=== PATIENT | male | born 1935 | race Caucasian/White ===

== ENCOUNTER 2021-06-12 08:28 | Emergency (ER) | payer OTHER ==
[2021-06-12] MEDS ORDERED: ASPIRIN 325 MG TABLET PO ONE (08:41)
[2021-06-12] MEDS ORDERED: ASPIRIN 81 MG CHEWABLE TABLETS PO ONE (08:44)
[2021-06-12] MEDS ORDERED: NITROGLYCERIN SUBLINGUAL 1/150 0.4 MG TAB SL ONE (09:06)
[2021-06-12 09:13] LABS: BASO % 1.1 % (0-2.0); EOS % 1.4 % (0-4.5); HEMATOCRIT 40.7 % (35.4-49); HEMOGLOBIN 13.6 GM/dL (11.7-16.9); LYMPH % 8.9 % (8-40); MCH 32.1 pg (25.7-33.7); MCHC 33.3 g/dl (32.0-35.9); MEAN CELL VOLUME 96.3 fl (80-96); MONO % 8.9 % (3.8-10.2); NEUT % 79.7 % (42.8-82.8); PLATELET COUNT 151 10^3/uL (134-434); RBC 4.23 M/mm3 (4.00-5.60); RDW 13.2 % (11.9-15.9); WHITE BLOOD COUNT 10.1 K/mm3 (4.0-10.0)
[2021-06-12 09:16] VITALS: BMI 20.2
[2021-06-12 09:22] LABS: INR 1.05 (0.83-1.09); PROTHROMBIN TIME (PATIENT) 12.3 SEC (9.7-13.0)
[2021-06-12 09:25] LABS: ACTIVATED PTT 27.8 SECONDS (25.2-36.5); CHLORIDE 111 mmol/L (98-107); SODIUM 141 mmol/L (136-145)
[2021-06-12 09:27] LABS: CALCIUM 9.3 mg/dL (8.5-10.1)
[2021-06-12 09:28] LABS: ANION GAP 9 MMOL/L (8-16); BLOOD UREA NITROGEN 33.2 mg/dL (7-18); CO2 21 mmol/L (21-32); GLUCOSE,RANDOM 174 mg/dL (74-106)
[2021-06-12 09:31] LABS: SGOT/AST 21 U/L (15-37); SGPT/ALT 16 U/L (13-61)
[2021-06-12 09:33] LABS: ALK PHOS 141 U/L (45-117)
[2021-06-12] MEDS ORDERED: ATORVASTATIN CA 40 MG TABLET (FP) PO ONE (09:42)
[2021-06-12] MEDS ORDERED: HEPARIN NA (PORCINE) 5,000 UNITS/ML 1ML VIAL IVPUSH PRN ×2 (09:49)
[2021-06-12] MEDS ORDERED: HEPARIN NA (PORCINE) 5,000 UNITS/ML 1ML VIAL IVPUSH ONE (09:49)
[2021-06-12] MEDS ORDERED: HEPARIN - 25,000 UNIT in SODIUM CHLORIDE 495 ML IV SCH (10:00)
[2021-06-12] MEDS ORDERED: ATORVASTATIN CA 40 MG TABLET (FP) ONE (10:08)
[2021-06-12] MEDS ORDERED: HEPARIN INFUSION - 25,000 UNITS/500 ML INFUS.BAG IVPB ONE (10:08)
[2021-06-12 10:18] LABS: N-TERMINAL BNP 10730.9 pg/ml (5-450)
[2021-06-12] MEDS ORDERED: METOPROLOL TARTRATE 25 MG TABLET (FP) PO ONE (10:30)
[2021-06-12 13:06] VITALS: BP 181/68; PULSE 100; TEMP 99.2
== END 2021-06-12 13:09 | disposition short-term general hospital (02) ==
LOC: JER 08:28
PROC: 3E033GC Introduction of Other Therapeutic Substance into Peripheral Vein, Percutaneous Approach (ICD-10-PCS; principal; 2021-06-12)
DX: I20.0 Unstable angina (principal)
CPT/HCPCS: 36415; 71045-TC-FY; 80053; 80061; 82550; 83690; 83735; 83880; 84484; 85025; 85610; 85730; 93005; 93010; 99285-25; C9803; J1644; U0003; U0005

== ENCOUNTER 2021-09-19 09:32 | Inpatient (IN) | payer OTHER ==
[2021-09-19] MEDS ORDERED: NITROGLYCERIN 50MG/D5W 250ML 50 MG/250 ML ML IVPB SCH (10:15)
[2021-09-19] MEDS ORDERED: FUROSEMIDE 40 MG/4 ML INJECTABLE VIAL IVPUSH ONE (10:59)
[2021-09-19] MEDS: NITROGLYCERIN 25MG/D5W 250ML 25 MG/250 ML ML IVPB SCH (11:07)
[2021-09-19] MEDS ORDERED: FUROSEMIDE 40 MG/4 ML INJECTABLE VIAL ONE (11:10)
[2021-09-19 11:36] LABS: BASO % 0.9 % (0-2.0); EOS % 5.9 % (0-4.5); HEMATOCRIT 30.8 % (35.4-49); HEMOGLOBIN 10.6 GM/dL (11.7-16.9); LYMPH % 6.8 % (8-40); MCH 32.1 pg (25.7-33.7); MCHC 34.3 g/dl (32.0-35.9); MEAN CELL VOLUME 93.6 fl (80-96); MEAN PLT VOLUME 8.7 fl (7.5-11.1); MONO % 7.7 % (3.8-10.2); NEUT % 78.7 % (42.8-82.8); PLATELET COUNT 304 10^3/uL (134-434); RBC 3.29 M/mm3 (4.00-5.60); RDW 15.3 % (11.9-15.9)
[2021-09-19 11:44] LABS: CHLORIDE 109 mmol/L (98-107); SODIUM 142 mmol/L (136-145)
[2021-09-19 11:46] LABS: CALCIUM 9.8 mg/dL (8.5-10.1)
[2021-09-19 11:47] LABS: ALBUMIN 3.3 g/dl (3.4-5.0); ANION GAP 9 MMOL/L (8-16); BLOOD UREA NITROGEN 64.6 mg/dL (7-18); CO2 24 mmol/L (21-32); GLUCOSE,RANDOM 205 mg/dL (74-106)
[2021-09-19 11:50] LABS: CREATININE 2.4 mg/dL (0.55-1.3); SGOT/AST 20 U/L (15-37); SGPT/ALT 18 U/L (13-61)
[2021-09-19 11:51] LABS: BILIRUBIN,TOTAL 0.7 mg/dL (0.2-1); TOT PROT 8.4 g/dl (6.4-8.2)
[2021-09-19 11:52] LABS: ALK PHOS 165 U/L (45-117)
[2021-09-19 13:20] LABS: N-TERMINAL BNP 21855.6 pg/ml (5-450)
[2021-09-19] MEDS ORDERED: ATORVASTATIN CA 80 MG TABLET (FP) PO ONE (13:59)
[2021-09-19] MEDS ORDERED: MELATONIN 5 MG TABLETS PO ONE (14:01)
[2021-09-19] MEDS ORDERED: FLUTICASONE PROP 0.05% 16 GM NASAL SPRAY NS ONE (14:04)
[2021-09-19] MEDS ORDERED: MECLIZINE HCL 12.5 MG TABLET PO PRN (14:05)
[2021-09-19] MEDS ORDERED: MELATONIN 5 MG TABLETS ONE (15:18)
[2021-09-19] MEDS ORDERED: ATORVASTATIN CA 80 MG TABLET (FP) ONE (15:18)
[2021-09-19] MEDS: amLODIPine BESYLATE 5 MG TABLET (FP) PO SCH (15:27)
[2021-09-19] MEDS: ALBUTEROL SO4 0.083% IH SOL 2.5 MG/3 ML VIAL.NEB. NEB SCH (15:27)
[2021-09-19] MEDS ORDERED: amLODIPine BESYLATE 5 MG TABLET (FP) ONE (15:29)
[2021-09-19] MEDS ORDERED: HEPARIN NA (PORCINE) 5,000 UNITS/ML 1ML VIAL ONE (15:29)
[2021-09-19] MEDS: HEPARIN NA (PORCINE) 5,000 UNITS/ML 1ML VIAL SQ SCH (17:21)
[2021-09-19] MEDS ORDERED: FUROSEMIDE 40 MG/4 ML INJECTABLE VIAL IVPUSH SCH (22:00)
[2021-09-20] MEDS: TICAGRELOR 60 MG TABLET PO SCH ×3 (02:37→22:30)
[2021-09-20] MEDS: HEPARIN NA (PORCINE) 5,000 UNITS/ML 1ML VIAL SQ SCH ×4 (02:38→22:30)
[2021-09-20] MEDS: MELATONIN 5 MG TABLETS PO PRN (02:38)
[2021-09-20] MEDS ORDERED: MELATONIN 5 MG TABLETS ONE (02:41)
[2021-09-20] MEDS ORDERED: FUROSEMIDE 40 MG/4 ML INJECTABLE VIAL ONE ×3 (02:41→13:23)
[2021-09-20] MEDS ORDERED: HEPARIN NA (PORCINE) 5,000 UNITS/ML 1ML VIAL ONE ×3 (07:38→22:03)
[2021-09-20] MEDS: FUROSEMIDE 40 MG/4 ML INJECTABLE VIAL IVPUSH SCH ×2 (08:00→14:36)
[2021-09-20] MEDS: ALBUTEROL SO4 0.083% IH SOL 2.5 MG/3 ML VIAL.NEB. NEB SCH ×2 (09:00→14:41)
[2021-09-20] MEDS ORDERED: amLODIPine BESYLATE 5 MG TABLET (FP) ONE (09:53)
[2021-09-20] MEDS ORDERED: ASPIRIN COATED 81 MG TABLET.EC ONE (09:53)
[2021-09-20] MEDS: CHOLECALCIFEROL (VIT D3) 5000 UNITS (125 MCG) CAP PO SCH (10:06)
[2021-09-20] MEDS: ASPIRIN COATED 81 MG TABLET.EC PO SCH (10:06)
[2021-09-20] MEDS: amLODIPine BESYLATE 5 MG TABLET (FP) PO SCH (10:06)
[2021-09-20] MEDS: CYANOCOBALAMIN 1,000 MCG TABLET (FP) PO SCH (10:06)
[2021-09-20] MEDS: NITROGLYCERIN 25MG/D5W 250ML 25 MG/250 ML ML IVPB SCH (11:13)
[2021-09-20] MEDS ORDERED: metoPROLOL SUCCINATE 25 MG TAB.SR.24H (FP) ONE (13:23)
[2021-09-20] MEDS ORDERED: NITROGLYCERIN SUBLINGUAL 1/200 0.3 MG BTL SL PRN (13:30)
[2021-09-20] MEDS: metoPROLOL SUCCINATE 25 MG TAB.SR.24H (FP) PO SCH (14:05)
[2021-09-20 15:22] LABS: BASO % 1.3 % (0-2.0); EOS % 2.5 % (0-4.5); HEMATOCRIT 32.1 % (35.4-49); HEMOGLOBIN 10.7 GM/dL (11.7-16.9); LYMPH % 6.3 % (8-40); MCH 31.5 pg (25.7-33.7); MCHC 33.5 g/dl (32.0-35.9); MEAN CELL VOLUME 94.2 fl (80-96); MEAN PLT VOLUME 8.8 fl (7.5-11.1); MONO % 9.8 % (3.8-10.2); NEUT % 80.1 % (42.8-82.8); PLATELET COUNT 280 10^3/uL (134-434); RBC 3.41 M/mm3 (4.00-5.60); RDW 15.2 % (11.9-15.9); WHITE BLOOD COUNT 10.9 K/mm3 (4.0-10.0)
[2021-09-20 15:42] LABS: CALCIUM 9.3 mg/dL (8.5-10.1)
[2021-09-20 15:43] LABS: ALBUMIN 2.9 g/dl (3.4-5.0); BLOOD UREA NITROGEN 57.6 mg/dL (7-18)
[2021-09-20] MEDS ORDERED: NITROGLYCERIN SUBLINGUAL 1/150 0.4 MG TAB SL PRN ×2 (15:45→15:50)
[2021-09-20 15:46] LABS: CREATININE 2.4 mg/dL (0.55-1.3)
[2021-09-20 15:47] LABS: BILIRUBIN,TOTAL 0.8 mg/dL (0.2-1); TOT PROT 7.9 g/dl (6.4-8.2)
[2021-09-21] MEDS: HEPARIN NA (PORCINE) 5,000 UNITS/ML 1ML VIAL SQ SCH ×3 (06:40→21:02)
[2021-09-21] MEDS: FUROSEMIDE 40 MG/4 ML INJECTABLE VIAL IVPUSH SCH ×2 (06:42→13:54)
[2021-09-21] MEDS: metoPROLOL SUCCINATE 25 MG TAB.SR.24H (FP) PO SCH (09:05)
[2021-09-21] MEDS: CYANOCOBALAMIN 1,000 MCG TABLET (FP) PO SCH (09:05)
[2021-09-21] MEDS: ASPIRIN COATED 81 MG TABLET.EC PO SCH (09:05)
[2021-09-21] MEDS: amLODIPine BESYLATE 5 MG TABLET (FP) PO SCH (09:05)
[2021-09-21] MEDS: CHOLECALCIFEROL (VIT D3) 5000 UNITS (125 MCG) CAP PO SCH (09:06)
[2021-09-21] MEDS: TICAGRELOR 60 MG TABLET PO SCH ×2 (09:06→21:02)
[2021-09-21] MEDS: INSULIN SLIDING SCALE (NOVOLOG) 1 VIAL SQ SCH ×3 (11:06→19:23)
[2021-09-21 11:32] VITALS: BMI 14.6
[2021-09-21 13:09] LABS: CALCIUM 8.9 mg/dL (8.5-10.1)
[2021-09-21 13:10] LABS: BLOOD UREA NITROGEN 56.5 mg/dL (7-18)
[2021-09-21 13:11] LABS: PHOSPHOROUS 4.2 mg/dL (2.5-4.9)
[2021-09-21 13:13] LABS: CREATININE 2.6 mg/dL (0.55-1.3)
[2021-09-21] MEDS ORDERED: PIPERACILLIN/TAZOB 2.25 GM 2.25 GM in DEXTROSE 5%-WATER - 50 ML IVPB SCH (13:30)
[2021-09-21] MEDS ORDERED: PIPERACILLIN/TAZOBACTAM 2.25 GM VIAL IVPB ONE ×2 (13:50→18:04)
[2021-09-21] MEDS ORDERED: DEXTROSE 5%-WATER - 50 ML IVPB ONE ×2 (13:50→18:04)
[2021-09-21 14:22] LABS: EPI CELLS 14 /uL (0-25.1); HYALINE CASTS 3 /uL (0-3.1); URINE APPEARANCE TURBID; URINE BACTERIA 2797 /uL (0-1359); URINE BILIRUBIN NEGATIVE (NEGATIVE); URINE COLOR YELLOW; URINE GLUCOSE (UA) NEGATIVE (NEGATIVE); URINE KETONE NEGATIVE (NEGATIVE); URINE LEUK ESTERASE 3+ (NEGATIVE); URINE NITRITE NEGATIVE (NEGATIVE); URINE PROTEIN 2+ (NEGATIVE); URINE UROBILINOGEN 0.2 mg/dL (0.2-1.0); URINE WBC 24536 /uL (0-25.8)
[2021-09-21 14:31] LABS: URINE RBC 504.1 /uL (0-23.9); YEAST NO SEEN (NEGATIVE)
[2021-09-21] MEDS: PIPERACILLIN/TAZOB 2.25 GM 2.25 GM in DEXTROSE 5%-WATER - 50 ML IVPB SCH (18:10)
[2021-09-21] MEDS: ALBUTEROL SO4 0.083% IH SOL 2.5 MG/3 ML VIAL.NEB. NEB SCH ×2 (19:24→19:25)
[2021-09-21] MEDS: MELATONIN 5 MG TABLETS PO PRN (21:02)
[2021-09-22] MEDS ORDERED: DEXTROSE 5%-WATER - 50 ML IVPB ONE ×3 (00:54→17:21)
[2021-09-22] MEDS ORDERED: PIPERACILLIN/TAZOBACTAM 2.25 GM VIAL IVPB ONE ×3 (00:54→17:21)
[2021-09-22] MEDS: PIPERACILLIN/TAZOB 2.25 GM 2.25 GM in DEXTROSE 5%-WATER - 50 ML IVPB SCH ×3 (01:10→18:26)
[2021-09-22] MEDS: HEPARIN NA (PORCINE) 5,000 UNITS/ML 1ML VIAL SQ SCH ×3 (07:01→21:45)
[2021-09-22] MEDS: INSULIN SLIDING SCALE (NOVOLOG) 1 VIAL SQ SCH ×3 (07:02→17:12)
[2021-09-22] MEDS: FUROSEMIDE 40 MG/4 ML INJECTABLE VIAL IVPUSH SCH ×2 (07:02→14:41)
[2021-09-22 08:02] LABS: HEMATOCRIT 24.8 % (35.4-49); HEMOGLOBIN 8.4 GM/dL (11.7-16.9); MCH 31.6 pg (25.7-33.7); MCHC 34.1 g/dl (32.0-35.9); MEAN CELL VOLUME 92.9 fl (80-96); PLATELET COUNT 197 10^3/uL (134-434); RBC 2.66 M/mm3 (4.00-5.60); RDW 14.9 % (11.9-15.9); WHITE BLOOD COUNT 10.3 K/mm3 (4.0-10.0)
[2021-09-22 08:19] LABS: CALCIUM 8.5 mg/dL (8.5-10.1)
[2021-09-22 08:20] LABS: BLOOD UREA NITROGEN 66.8 mg/dL (7-18); MAGNESIUM 1.8 mg/dL (1.8-2.4)
[2021-09-22 08:23] LABS: CREATININE 2.8 mg/dL (0.55-1.3); PHOSPHOROUS 4.1 mg/dL (2.5-4.9)
[2021-09-22] MEDS: CHOLECALCIFEROL (VIT D3) 5000 UNITS (125 MCG) CAP PO SCH (11:28)
[2021-09-22] MEDS: ASPIRIN COATED 81 MG TABLET.EC PO SCH (11:28)
[2021-09-22] MEDS: metoPROLOL SUCCINATE 25 MG TAB.SR.24H (FP) PO SCH (11:28)
[2021-09-22] MEDS: CYANOCOBALAMIN 1,000 MCG TABLET (FP) PO SCH (11:28)
[2021-09-22] MEDS: TICAGRELOR 60 MG TABLET PO SCH ×2 (11:28→21:45)
[2021-09-22] MEDS: amLODIPine BESYLATE 5 MG TABLET (FP) PO SCH (11:28)
[2021-09-22] MEDS: MELATONIN 5 MG TABLETS PO PRN (21:45)
[2021-09-23] MEDS ORDERED: PIPERACILLIN/TAZOBACTAM 2.25 GM VIAL IVPB ONE ×2 (00:33→09:45)
[2021-09-23] MEDS ORDERED: DEXTROSE 5%-WATER - 50 ML IVPB ONE ×2 (00:33→09:45)
[2021-09-23] MEDS: PIPERACILLIN/TAZOB 2.25 GM 2.25 GM in DEXTROSE 5%-WATER - 50 ML IVPB SCH ×2 (01:00→10:03)
[2021-09-23] MEDS: FUROSEMIDE 40 MG/4 ML INJECTABLE VIAL IVPUSH SCH (06:39)
[2021-09-23] MEDS: HEPARIN NA (PORCINE) 5,000 UNITS/ML 1ML VIAL SQ SCH ×3 (06:39→21:28)
[2021-09-23] MEDS: INSULIN SLIDING SCALE (NOVOLOG) 1 VIAL SQ SCH ×3 (06:40→17:37)
[2021-09-23 08:30] LABS: BASO % 0.5 % (0-2.0); EOS % 5.3 % (0-4.5); HEMATOCRIT 24.7 % (35.4-49); HEMOGLOBIN 8.2 GM/dL (11.7-16.9); LYMPH % 8.5 % (8-40); MCHC 33.2 g/dl (32.0-35.9); MEAN CELL VOLUME 93.3 fl (80-96); MEAN PLT VOLUME 9.3 fl (7.5-11.1); MONO % 9.8 % (3.8-10.2); NEUT % 75.9 % (42.8-82.8); PLATELET COUNT 202 10^3/uL (134-434); RBC 2.65 M/mm3 (4.00-5.60); RDW 14.8 % (11.9-15.9)
[2021-09-23 08:55] LABS: ALBUMIN 2.4 g/dl (3.4-5.0); BLOOD UREA NITROGEN 71.7 mg/dL (7-18); CALCIUM 8.8 mg/dL (8.5-10.1)
[2021-09-23 08:58] LABS: CREATININE 2.9 mg/dL (0.55-1.3)
[2021-09-23 09:00] LABS: BILIRUBIN,TOTAL 0.6 mg/dL (0.2-1); TOT PROT 6.6 g/dl (6.4-8.2)
[2021-09-23] MEDS: CYANOCOBALAMIN 1,000 MCG TABLET (FP) PO SCH (10:02)
[2021-09-23] MEDS: metoPROLOL SUCCINATE 25 MG TAB.SR.24H (FP) PO SCH (10:02)
[2021-09-23] MEDS: TICAGRELOR 60 MG TABLET PO SCH ×2 (10:02→21:28)
[2021-09-23] MEDS: amLODIPine BESYLATE 10 MG TABLET (FP) PO SCH (10:02)
[2021-09-23] MEDS: ASPIRIN COATED 81 MG TABLET.EC PO SCH (10:02)
[2021-09-23] MEDS: CHOLECALCIFEROL (VIT D3) 5000 UNITS (125 MCG) CAP PO SCH (10:03)
[2021-09-23 14:25] LABS: EPI CELLS 3 /uL (0-25.1); HYALINE CASTS 1 /uL (0-3.1); PH,URINE 5.5 (5.0-8.0); URINE APPEARANCE CLOUDY; URINE BACTERIA 7 /uL (0-1359); URINE BILIRUBIN NEGATIVE (NEGATIVE); URINE COLOR YELLOW; URINE GLUCOSE (UA) NEGATIVE (NEGATIVE); URINE KETONE NEGATIVE (NEGATIVE); URINE LEUK ESTERASE 3+ (NEGATIVE); URINE NITRITE NEGATIVE (NEGATIVE); URINE PROTEIN TRACE (NEGATIVE); URINE RBC 538 /uL (0-23.9); URINE UROBILINOGEN 0.2 mg/dL (0.2-1.0); URINE WBC 1177 /uL (0-25.8)
[2021-09-23] MEDS: ALBUTEROL SO4 HFA INHALER IH PRN ×2 (15:49→21:23)
[2021-09-23] MEDS: MELATONIN 5 MG TABLETS PO PRN (21:28)
[2021-09-23] MEDS: AMOXICILLIN 500 MG CAPSULE (FP) PO SCH (21:28)
[2021-09-24] MEDS ORDERED: ACETAMINOPHEN 500 MG TABLET (FP) PO ONE (02:30)
[2021-09-24] MEDS: HEPARIN NA (PORCINE) 5,000 UNITS/ML 1ML VIAL SQ SCH (05:57)
[2021-09-24] MEDS: INSULIN SLIDING SCALE (NOVOLOG) 1 VIAL SQ SCH ×2 (06:00→12:47)
[2021-09-24 06:03] VITALS: PULSE 70
[2021-09-24 08:50] LABS: BASO % 0.5 % (0-2.0); EOS % 7.2 % (0-4.5); HEMATOCRIT 24.9 % (35.4-49); HEMOGLOBIN 8.5 GM/dL (11.7-16.9); LYMPH % 9.5 % (8-40); MCH 31.6 pg (25.7-33.7); MCHC 34.1 g/dl (32.0-35.9); MEAN CELL VOLUME 92.7 fl (80-96); MONO % 10.5 % (3.8-10.2); NEUT % 72.3 % (42.8-82.8); PLATELET COUNT 203 10^3/uL (134-434); RBC 2.69 M/mm3 (4.00-5.60); RDW 14.6 % (11.9-15.9); WHITE BLOOD COUNT 8.9 K/mm3 (4.0-10.0)
[2021-09-24 09:21] LABS: BLOOD UREA NITROGEN 72.8 mg/dL (7-18); CALCIUM 8.5 mg/dL (8.5-10.1)
[2021-09-24 09:25] LABS: CREATININE 2.9 mg/dL (0.55-1.3)
[2021-09-24] MEDS ORDERED: FUROSEMIDE 40 MG TABLET (FP) PO SCH (10:00)
[2021-09-24] MEDS: TICAGRELOR 60 MG TABLET PO SCH (10:27)
[2021-09-24] MEDS: ALBUTEROL SO4 HFA INHALER IH PRN (10:27)
[2021-09-24] MEDS: AMOXICILLIN 500 MG CAPSULE (FP) PO SCH (10:27)
[2021-09-24] MEDS: CYANOCOBALAMIN 1,000 MCG TABLET (FP) PO SCH (10:28)
[2021-09-24] MEDS: metoPROLOL SUCCINATE 25 MG TAB.SR.24H (FP) PO SCH (10:28)
[2021-09-24] MEDS: ASPIRIN COATED 81 MG TABLET.EC PO SCH (10:28)
[2021-09-24] MEDS: amLODIPine BESYLATE 10 MG TABLET (FP) PO SCH (10:28)
[2021-09-24] MEDS: CHOLECALCIFEROL (VIT D3) 5000 UNITS (125 MCG) CAP PO SCH (10:29)
[2021-09-24 14:06] VITALS: BP 115/57; TEMP 98.3
== END 2021-09-24 15:30 | disposition left against medical advice (07) | DRG 291 ==
LOC: JER 09:32 → JERBED 10:19 → J4W 17:38 → JERBED 18:58 → J4S 09-21 01:29
DX: I13.0 Hypertensive heart and chronic kidney disease with heart failure and stage 1 through stage 4 chronic kidney disease, or unspecified chronic kidney disease (principal); I50.23 Acute on chronic systolic (congestive) heart failure; J18.9 Pneumonia, unspecified organism; I24.8 Other forms of acute ischemic heart disease; Z68.1 Body mass index [BMI] 19.9 or less, adult; J98.11 Atelectasis; N39.0 Urinary tract infection, site not specified; E11.65 Type 2 diabetes mellitus with hyperglycemia; J45.909 Unspecified asthma, uncomplicated; E11.22 Type 2 diabetes mellitus with diabetic chronic kidney disease; N18.9 Chronic kidney disease, unspecified; D64.9 Anemia, unspecified; I25.10 Atherosclerotic heart disease of native coronary artery without angina pectoris; E78.5 Hyperlipidemia, unspecified; E78.00 Pure hypercholesterolemia, unspecified; F17.210 Nicotine dependence, cigarettes, uncomplicated; R33.9 Retention of urine, unspecified; Z98.61 Coronary angioplasty status; B96.20 Unspecified Escherichia coli [E. coli] as the cause of diseases classified elsewhere; D72.829 Elevated white blood cell count, unspecified; E87.70 Fluid overload, unspecified; N40.1 Benign prostatic hyperplasia with lower urinary tract symptoms
CPT/HCPCS: 36415; 71045-TC-FY; 76775-TC; 76856-TC; 80048; 80053; 81003; 82550; 82728; 82962; 83036; 83540; 83550; 83735; 83880; 84100; 84484; 85025; 85027; 87040; 87086; 87186; 93005; 93010; 93306-TC; 94660; 94761; 97116-GP; 97162-GP; 99285-25; C9803; J1644; U0003; U0005

== ENCOUNTER 2021-09-29 04:13 | Inpatient (IN) | payer OTHER ==
[2021-09-29 05:08] LABS: BASO % 1.3 % (0-2.0); EOS % 8.1 % (0-4.5); HEMOGLOBIN 8.6 GM/dL (11.7-16.9); LYMPH % 10.4 % (8-40); MCHC 34.6 g/dl (32.0-35.9); MEAN CELL VOLUME 92.6 fl (80-96); MEAN PLT VOLUME 8.9 fl (7.5-11.1); MONO % 10.8 % (3.8-10.2); NEUT % 69.4 % (42.8-82.8); PLATELET COUNT 229 10^3/uL (134-434); RDW 14.9 % (11.9-15.9); WHITE BLOOD COUNT 8.2 K/mm3 (4.0-10.0)
[2021-09-29 05:33] LABS: ALBUMIN 2.8 g/dl (3.4-5.0); BLOOD UREA NITROGEN 66.6 mg/dL (7-18); CALCIUM 8.8 mg/dL (8.5-10.1)
[2021-09-29 05:36] LABS: CREATININE 2.9 mg/dL (0.55-1.3)
[2021-09-29 05:38] LABS: BILIRUBIN,TOTAL 0.4 mg/dL (0.2-1); TOT PROT 7.5 g/dl (6.4-8.2)
[2021-09-29 05:41] LABS: N-TERMINAL BNP 15833.2 pg/ml (5-450)
[2021-09-29] MEDS ORDERED: FUROSEMIDE 40 MG/4 ML INJECTABLE VIAL IVPUSH ONE (05:46)
[2021-09-29] MEDS ORDERED: FUROSEMIDE 40 MG/4 ML INJECTABLE VIAL ONE ×2 (05:58→14:07)
[2021-09-29] MEDS ORDERED: MECLIZINE HCL 25 MG TABLET (FP) PO PRN (08:54)
[2021-09-29] MEDS ORDERED: ASPIRIN COATED 81 MG TABLET.EC ONE (10:27)
[2021-09-29] MEDS ORDERED: THIAMINE HCL 100 MG TABLET (FP) ONE (10:27)
[2021-09-29] MEDS ORDERED: amLODIPine BESYLATE 5 MG TABLET (FP) ONE (10:27)
[2021-09-29] MEDS ORDERED: HEPARIN NA (PORCINE) 5,000 UNITS/ML 1ML VIAL ONE ×3 (10:28→22:05)
[2021-09-29] MEDS ORDERED: metoPROLOL SUCCINATE 25 MG TAB.SR.24H (FP) ONE (10:28)
[2021-09-29] MEDS: CHOLECALCIFEROL (VIT D3) 5000 UNITS (125 MCG) CAP PO SCH (10:50)
[2021-09-29] MEDS: amLODIPine BESYLATE 5 MG TABLET (FP) PO SCH (10:50)
[2021-09-29] MEDS: CYANOCOBALAMIN (VITAMIN B-12) 100 MCG TABLET PO SCH (10:50)
[2021-09-29] MEDS: HEPARIN NA (PORCINE) 5,000 UNITS/ML 1ML VIAL SQ SCH ×3 (10:50→22:13)
[2021-09-29] MEDS: metoPROLOL SUCCINATE 25 MG TAB.SR.24H (FP) PO SCH (10:50)
[2021-09-29 11:02] LABS: EPI CELLS 4 /uL (0-25.1); HYALINE CASTS 0 /uL (0-3.1); PH,URINE 6.5 (5.0-8.0); URINE APPEARANCE CLEAR; URINE BACTERIA 5 /uL (0-1359); URINE BILIRUBIN NEGATIVE (NEGATIVE); URINE COLOR YELLOW; URINE GLUCOSE (UA) NEGATIVE (NEGATIVE); URINE KETONE NEGATIVE (NEGATIVE); URINE LEUK ESTERASE TRACE (NEGATIVE); URINE NITRITE NEGATIVE (NEGATIVE); URINE PROTEIN NEGATIVE (NEGATIVE); URINE RBC 76 /uL (0-23.9); URINE UROBILINOGEN 0.2 mg/dL (0.2-1.0); URINE WBC 9 /uL (0-25.8)
[2021-09-29] MEDS: INSULIN SLIDING SCALE (NOVOLOG) 1 VIAL SQ SCH ×2 (11:50→17:18)
[2021-09-29] MEDS: ASPIRIN COATED 81 MG TABLET.EC PO SCH (12:09)
[2021-09-29] MEDS: TICAGRELOR 60 MG TABLET PO SCH ×2 (12:09→22:40)
[2021-09-29] MEDS: FUROSEMIDE 40 MG/4 ML INJECTABLE VIAL IVPUSH SCH (14:24)
[2021-09-29] MEDS ORDERED: ATORVASTATIN CA 40 MG TABLET (FP) ONE ×2 (22:05→22:09)
[2021-09-29] MEDS: ATORVASTATIN CA 80 MG TABLET (FP) PO SCH (22:13)
[2021-09-29 23:39] VITALS: BMI 17.3
[2021-09-30] MEDS: FUROSEMIDE 40 MG/4 ML INJECTABLE VIAL IVPUSH SCH ×2 (05:33→13:36)
[2021-09-30] MEDS: HEPARIN NA (PORCINE) 5,000 UNITS/ML 1ML VIAL SQ SCH ×3 (05:34→21:22)
[2021-09-30] MEDS: INSULIN SLIDING SCALE (NOVOLOG) 1 VIAL SQ SCH ×3 (06:22→18:13)
[2021-09-30 07:38] LABS: HEMATOCRIT 25.7 % (35.4-49); MCH 32.2 pg (25.7-33.7); MEAN CELL VOLUME 91.9 fl (80-96); MEAN PLT VOLUME 8.3 fl (7.5-11.1); PLATELET COUNT 245 10^3/uL (134-434); RBC 2.79 M/mm3 (4.00-5.60); RDW 15.1 % (11.9-15.9); WHITE BLOOD COUNT 7.5 K/mm3 (4.0-10.0)
[2021-09-30 08:10] LABS: CALCIUM 8.8 mg/dL (8.5-10.1)
[2021-09-30 08:11] LABS: MAGNESIUM 2.2 mg/dL (1.8-2.4)
[2021-09-30 08:12] LABS: CREATININE 2.5 mg/dL (0.55-1.3); PHOSPHOROUS 4.4 mg/dL (2.5-4.9)
[2021-09-30] MEDS: ASPIRIN COATED 81 MG TABLET.EC PO SCH (09:28)
[2021-09-30] MEDS: TICAGRELOR 60 MG TABLET PO SCH ×2 (09:28→21:22)
[2021-09-30] MEDS: amLODIPine BESYLATE 5 MG TABLET (FP) PO SCH (09:28)
[2021-09-30] MEDS: metoPROLOL SUCCINATE 25 MG TAB.SR.24H (FP) PO SCH (09:28)
[2021-09-30] MEDS: CYANOCOBALAMIN (VITAMIN B-12) 100 MCG TABLET PO SCH (09:28)
[2021-09-30] MEDS: CHOLECALCIFEROL (VIT D3) 5000 UNITS (125 MCG) CAP PO SCH (09:29)
[2021-09-30] MEDS ORDERED: POTASSIUM CHLORIDE TABS 20 MEQ TABLET.ER (FP) PO ONE (11:30)
[2021-09-30] MEDS: FINASTERIDE 5 MG TABLET (FP) PO SCH (16:49)
[2021-09-30] MEDS: ATORVASTATIN CA 80 MG TABLET (FP) PO SCH (21:22)
[2021-10-01] MEDS: HEPARIN NA (PORCINE) 5,000 UNITS/ML 1ML VIAL SQ SCH ×3 (05:55→21:49)
[2021-10-01] MEDS: FUROSEMIDE 40 MG/4 ML INJECTABLE VIAL IVPUSH SCH ×2 (05:55→15:32)
[2021-10-01] MEDS: INSULIN SLIDING SCALE (NOVOLOG) 1 VIAL SQ SCH ×3 (06:02→17:00)
[2021-10-01 08:29] LABS: BASO % 1.4 % (0-2.0); EOS % 8.1 % (0-4.5); HEMATOCRIT 27.4 % (35.4-49); HEMOGLOBIN 9.2 GM/dL (11.7-16.9); LYMPH % 20.1 % (8-40); MCH 31.3 pg (25.7-33.7); MCHC 33.4 g/dl (32.0-35.9); MEAN CELL VOLUME 93.5 fl (80-96); MEAN PLT VOLUME 8.8 fl (7.5-11.1); MONO % 9.4 % (3.8-10.2); PLATELET COUNT 278 10^3/uL (134-434); RBC 2.93 M/mm3 (4.00-5.60); RDW 14.5 % (11.9-15.9); WHITE BLOOD COUNT 7.7 K/mm3 (4.0-10.0)
[2021-10-01 08:41] LABS: BLOOD UREA NITROGEN 62.5 mg/dL (7-18)
[2021-10-01 08:45] LABS: CREATININE 2.5 mg/dL (0.55-1.3)
[2021-10-01] MEDS: CHOLECALCIFEROL (VIT D3) 5000 UNITS (125 MCG) CAP PO SCH (09:56)
[2021-10-01] MEDS: metoPROLOL SUCCINATE 25 MG TAB.SR.24H (FP) PO SCH (09:57)
[2021-10-01] MEDS: ASPIRIN COATED 81 MG TABLET.EC PO SCH (09:57)
[2021-10-01] MEDS: CYANOCOBALAMIN (VITAMIN B-12) 100 MCG TABLET PO SCH (09:57)
[2021-10-01] MEDS: FINASTERIDE 5 MG TABLET (FP) PO SCH (09:57)
[2021-10-01] MEDS: amLODIPine BESYLATE 5 MG TABLET (FP) PO SCH (09:57)
[2021-10-01] MEDS: TICAGRELOR 60 MG TABLET PO SCH ×2 (09:57→22:19)
[2021-10-01] MEDS: TAMSULOSIN HCL 0.4 MG CAP PO SCH (15:32)
[2021-10-01] MEDS: ATORVASTATIN CA 80 MG TABLET (FP) PO SCH (21:48)
[2021-10-02] MEDS ORDERED: ACETAMINOPHEN 1000 MG/100 ML BAG IVPB PRN (00:37)
[2021-10-02] MEDS: HEPARIN NA (PORCINE) 5,000 UNITS/ML 1ML VIAL SQ SCH ×2 (06:16→15:33)
[2021-10-02] MEDS: INSULIN SLIDING SCALE (NOVOLOG) 1 VIAL SQ SCH ×2 (06:16→11:52)
[2021-10-02] MEDS: FUROSEMIDE 40 MG/4 ML INJECTABLE VIAL IVPUSH SCH ×2 (06:16→15:34)
[2021-10-02 08:24] VITALS: BP 125/62; TEMP 97.7
[2021-10-02 09:21] LABS: BASO % 1.3 % (0-2.0); EOS % 7.3 % (0-4.5); HEMATOCRIT 23.5 % (35.4-49); HEMOGLOBIN 8.2 GM/dL (11.7-16.9); LYMPH % 22.6 % (8-40); MCH 32.3 pg (25.7-33.7); MEAN CELL VOLUME 92.5 fl (80-96); MEAN PLT VOLUME 8.1 fl (7.5-11.1); MONO % 9.4 % (3.8-10.2); NEUT % 59.4 % (42.8-82.8); PLATELET COUNT 228 10^3/uL (134-434); RBC 2.55 M/mm3 (4.00-5.60); RDW 14.6 % (11.9-15.9); WHITE BLOOD COUNT 6.5 K/mm3 (4.0-10.0)
[2021-10-02] MEDS: TAMSULOSIN HCL 0.4 MG CAP PO SCH (09:25)
[2021-10-02] MEDS: ASPIRIN COATED 81 MG TABLET.EC PO SCH (09:25)
[2021-10-02] MEDS: amLODIPine BESYLATE 5 MG TABLET (FP) PO SCH (09:25)
[2021-10-02] MEDS: CYANOCOBALAMIN (VITAMIN B-12) 100 MCG TABLET PO SCH (09:25)
[2021-10-02] MEDS: FINASTERIDE 5 MG TABLET (FP) PO SCH (09:26)
[2021-10-02] MEDS: metoPROLOL SUCCINATE 25 MG TAB.SR.24H (FP) PO SCH (09:26)
[2021-10-02] MEDS: CHOLECALCIFEROL (VIT D3) 5000 UNITS (125 MCG) CAP PO SCH (09:27)
[2021-10-02] MEDS: TICAGRELOR 60 MG TABLET PO SCH (09:27)
[2021-10-02 11:08] LABS: CALCIUM 8.9 mg/dL (8.5-10.1)
[2021-10-02 11:09] LABS: BLOOD UREA NITROGEN 63.9 mg/dL (7-18)
[2021-10-02 11:12] LABS: CREATININE 2.7 mg/dL (0.55-1.3)
[2021-10-02 14:54] VITALS: PULSE 85
== END 2021-10-02 17:33 | disposition home or self-care (01) | DRG 291 ==
LOC: JER 04:13 → JERBED 05:56 → J4W 23:10 → J6S 10-01 19:10
PROVIDERS: ADMIT Internal Medicine; ATTEND Internal Medicine
DX: I13.0 Hypertensive heart and chronic kidney disease with heart failure and stage 1 through stage 4 chronic kidney disease, or unspecified chronic kidney disease (principal); I50.23 Acute on chronic systolic (congestive) heart failure; I24.8 Other forms of acute ischemic heart disease; N17.9 Acute kidney failure, unspecified; Z68.1 Body mass index [BMI] 19.9 or less, adult; E78.00 Pure hypercholesterolemia, unspecified; I25.2 Old myocardial infarction; I45.10 Unspecified right bundle-branch block; I25.10 Atherosclerotic heart disease of native coronary artery without angina pectoris; D63.8 Anemia in other chronic diseases classified elsewhere; R94.31 Abnormal electrocardiogram [ECG] [EKG]; R63.4 Abnormal weight loss; D63.1 Anemia in chronic kidney disease; E87.70 Fluid overload, unspecified; N28.89 Other specified disorders of kidney and ureter; J45.909 Unspecified asthma, uncomplicated; E11.22 Type 2 diabetes mellitus with diabetic chronic kidney disease; N18.9 Chronic kidney disease, unspecified; R33.9 Retention of urine, unspecified; I08.3 Combined rheumatic disorders of mitral, aortic and tricuspid valves; Z95.5 Presence of coronary angioplasty implant and graft
CPT/HCPCS: 36415; 71045-TC-FY; 80048; 80053; 81003; 82550; 82570; 82962; 83735; 83880; 84100; 84156; 84300; 84484; 84540; 85025; 85027; 87086; 93005; 93010; 94761; 97116-GP; 97161-GP; 99285-25; C9803; J1644; U0003; U0005